=== PATIENT | male | born 1995 | race Caucasian/White ===

== ENCOUNTER 2022-05-21 09:05 | Emergency (ER) | payer BC ==
[2022-05-21] MEDS ORDERED: Ibuprofen 600 MG Tab PO ONE (09:25)
[2022-05-21] MEDS ORDERED: Ibuprofen 600 MG Tab ONE (09:29)
== END 2022-05-21 11:49 | disposition home or self-care (01) ==
LOC: MW.ED 09:05
DX: R07.9 Chest pain, unspecified (principal)
CPT/HCPCS: 71046; 99285; A9270